=== PATIENT | female | born 2000 | race Caucasian/White ===

== ENCOUNTER 2023-01-17 10:37 | Outpatient (OUT) | payer OTHER, SELFPAY ==
--- NOTE | 2023-01-17 10:35 | US_ITS ---
[address] [address] Patient Name: CHAD CLARKE MRN: [id number] date: 2000 Sex: F Assigned Patient Location: US Current Patient Location: Accession/Order Number: [id number] Exam Date: 01/17/2023 10:34 Report Date: 01/17/2023 13:22 At the request of: NIKI DUMONT Procedure: US pelvis w/ transvaginal EXAMINATION: US pelvis w/ transvaginal HISTORY: FOLLOW UP RT OVARIAN MASS , polycystic ovarian syndrome COMPARISON: No relevant comparison available. TECHNIQUE: Transabdominal and/or transvaginal sonographic examination was performed as indicated by examination type. FINDINGS: UTERUS: Normal size and appearance. Uterus size: 8.1 x 4.0 x 5.9 cm ENDOMETRIUM: Normal homogeneous appearance. Endometrial thickness: 9 mm RIGHT OVARY: Prior oophorectomy. No suspicious adnexal findings. LEFT OVARY: Normal size and appearance. Duplex Doppler demonstrates normal waveform and flow; resistive index 0.6. Ovary size: 4.2 x 2.2 x 3.0 cm CUL-DE-SAC: Unremarkable. No significant free fluid. BLADDER: Unremarkable. OTHER: None. US/US pelvis w/ transvaginal IMPRESSION: 1. Prior right oophorectomy; no suspicious adnexal findings. 2. Unremarkable uterus and left ovary. Electronically authenticated by: RAYMOND HUMPHREY Date: 01/17/2023 13:22
== END 2023-01-17 10:38 | disposition home or self-care (01) ==
LOC: US 10:38
PROVIDERS: Visit Provider Obstetrics & Gynecology
DX: C56.9 Malignant neoplasm of unspecified ovary (principal); Z90.721 Acquired absence of ovaries, unilateral
CPT/HCPCS: 76830; 76856